=== PATIENT | male | born 1965 | race Caucasian/White ===

== ENCOUNTER 2017-08-18 17:42 | Emergency (ER) | payer OTHER ==
[~2017-08-18 17:42] MED LIST: Adacel (T-DAP) 0.5 ML VIAL ONE; Morphine 4 MG/ML VIAL ONE; Sodium Chloride Irrig Solution 250 ML BOT ONE
[2017-08-18 18:13] LABS: #Basophils 0.2 thou/uL (0.0-0.2); #Eosinphils 0.1 thou/uL (0.0-0.7); #Lymphocytes 2.7 thou/uL (1.20-3.40); #Monocytes 0.8 thou/uL (0.11-0.59); %Basophils 1.6 % (0.0-1.0); %Eosinophils 1.5 % (0.0-10.0); %Lymphocytes 27.7 % (21.0-51.0); %Monocytes 8.2 % (0.0-10.0); Hemoglobin 16.1 g/dL (14.0-18.0); Mean Corpuscular HGB CONC 32.4 g/dL (32.0-36.0); Mean Corpuscular Hemoglobin 29.1 pg (27.0-31.0); Mean Platelet Volume 8.7 fL (7.4-10.4); Platelet Count 266 thou/uL (130-400); RBC Distribution Width 12.3 % (11.5-14.5); Red Blood Cell (RBC) Count 5.51 mill/uL (4.70-6.10); White Blood Cell (WBC) Count 9.8 thou/uL (4.8-10.8)
[2017-08-18 18:15] LABS: PTT 23.7 SEC (22.9-36.1); Prothrombin Time 12.8 SEC (12.0-14.7)
[2017-08-18 18:25] LABS: ALT (SGPT) 21 U/L (8-55); AST (SGOT) 18 U/L (5-34); Albumin 4.2 g/dL (3.5-5.0); Alkaline Phosphatase 84 U/L (40-150); Anion Gap 18 mmol/L (10-20); BUN (Urea Nitrogen) 11 mg/dL (8.4-25.7); Bilirubin, Total 0.5 mg/dL (0.2-1.2); Calc. Creatinine Clearance 0 mL/min (70-130); Calcium 9.2 mg/dL (7.8-10.44); Carbon Dioxide 22 mmol/L (22-29); Chloride 105 mmol/L (98-107); Estimated GFR-MDRD 73; Globulin 2.8 g/dL (2.4-3.5); Glucose 108 mg/dL (70-105); Potassium 3.8 mmol/L (3.5-5.1); Sodium 141 mmol/L (136-145)
[2017-08-18] MEDS ORDERED: CEFAZOLIN 1 GM VIAL ONE (19:14)
[2017-08-18] MEDS ORDERED: Morphine 4 MG/ML VIAL ONE (19:43)
[2017-08-18] MEDS ORDERED: Lidocaine 2% w/Epinephrine 1:200K 20 ML VIAL ONE (20:08)
--- NOTE | 2017-08-18 21:21 | RAD ---
LEFT HAND THREE VIEWS 08/18/17 HISTORY: Laceration. [employer] flew off and hit hand one hour ago. COMPARISON: None. FINDINGS: Limited evaluation due to overlying bandage material. There is dorsal soft tissue swelling, without e vidence of foreign body. No fracture. No cortical irregularity. No periosteal reaction. Joint spaces are preserved. IMPRESSION: 1. No fracture. 2. Soft tissue injury with associated soft tissue swelling and bandage material. 3. Limited evaluation due to bandage material. No definite foreign body. POS: [facility]
== END 2017-08-18 21:14 | disposition home or self-care (01) ==
LOC: MADERS 17:42
DX: S61.412A Laceration without foreign body of left hand, initial encounter (principal); W26.8XXA Contact with other sharp object(s), not elsewhere classified, initial encounter
CPT/HCPCS: 12005; 36415; 80053; 85025; 85610; 85730; 90471; 90715; 96365; 96372; 96375; J0690; J2270

== ENCOUNTER 2017-08-28 13:43 | Emergency (ER) | payer OTHER | END 2017-08-28 14:50 | disposition home or self-care (01) | LOC: MADERS 13:43 | DX: S61.412D Laceration without foreign body of left hand, subsequent encounter (principal); W25.XXXD Contact with sharp glass, subsequent encounter ==

== ENCOUNTER 2021-05-23 15:12 | Emergency (ER) | payer SELFPAY ==
[2021-05-23] MEDS ORDERED: Ibuprofen 800 MG TAB ONE (15:29)
[2021-05-24 08:32] LABS: SARS-CoV-2 PCR by NAA Not Detected (NotDetected)
== END 2021-05-23 16:23 | disposition home or self-care (01) ==
LOC: MADERS 15:12
DX: R50.9 Fever, unspecified (principal); R51.9 Headache, unspecified; R11.0 Nausea; R53.81 Other malaise; M79.10 Myalgia, unspecified site; Z20.822 Contact with and (suspected) exposure to COVID-19
CPT/HCPCS: 99284; U0003; U0005

== ENCOUNTER 2021-05-28 20:24 | Emergency (ER) | payer SELFPAY ==
[2021-05-28] MEDS ORDERED: Ibuprofen 800 MG TAB ONE (20:59)
[2021-05-28] MEDS ORDERED: predniSONE 20 MG TAB ONE (21:30)
[2021-05-28 21:47] LABS: Band 3 % (5-11); Giant Platelets SLIGHT; Hemoglobin 14.5 g/dL (14.0-18.0); Large Platelets SLIGHT; Lymphocytes 14 % (21-51); MDiff Complete? YES; Mean Corpuscular HGB CONC 32.4 g/dL (32.0-36.0); Mean Corpuscular Hemoglobin 29.2 pg (27.0-31.0); Mean Corpuscular Volume 90.1 fL (78.0-98.0); Monocytes 10 % (0-10); Neutrophil 73 % (42-75); Platelet Count 294 thou/uL (130-400); Platelet Morphology Comment Appears Adequate; RBC Distribution Width 12.5 % (11.5-14.5); RBC Morphology Normal; Red Blood Cell (RBC) Count 4.96 mill/uL (4.70-6.10)
[2021-05-28 21:49] LABS: ALT (SGPT) 68 U/L (8-55); AST (SGOT) 53 U/L (5-34); Albumin 3.4 g/dL (3.5-5.0); Alkaline Phosphatase 145 U/L (40-110); Anion Gap 16 mmol/L (10-20); BUN (Urea Nitrogen) 12 mg/dL (8.4-25.7); Bilirubin, Total 0.6 mg/dL (0.2-1.2); Calc. Creatinine Clearance 0 mL/min (70-130); Calcium 9.3 mg/dL (7.8-10.44); Carbon Dioxide 25 mmol/L (22-29); Chloride 102 mmol/L (98-107); Globulin 3.2 g/dL (2.4-3.5); Glucose 110 mg/dL (70-105); Magnesium 1.9 mg/dL (1.6-2.6); Potassium 4.2 mmol/L (3.5-5.1); Protein, Total 6.6 g/dL (6.0-8.3); Sodium 139 mmol/L (136-145)
[2021-05-28 21:58] LABS: SARS-CoV-2 NAA Rapid Test Not Detected (NotDetected)
[2021-05-28] MEDS ORDERED: Doxycycline 100 MG CAP ONE (22:14)
== END 2021-05-28 22:42 | disposition home or self-care (01) ==
LOC: MADERS 20:24
DX: J18.9 Pneumonia, unspecified organism (principal); J06.9 Acute upper respiratory infection, unspecified; Z20.822 Contact with and (suspected) exposure to COVID-19
CPT/HCPCS: 36415; 71046; 80053; 83735; 84484; 85025; J7512; J7620; U0002